=== PATIENT | male | born 1975 | race Caucasian/White ===

== ENCOUNTER 2017-03-16 05:14 | Emergency (ER) | payer BC, OTHER ==
--- NOTE | 2017-03-16 05:36 | ED ---
Abdominal Pain HPI - General Chief Complaint: Abdominal Pain Stated Complaint: Male Time Seen by Provider: 03/16/17 05:30 Source: patient Mode of arrival: ambulatory Limitations: no limitations - History of Present Illness Initial Comments: 41 years old male complaining about left-sided flank pain and some dysuria when he voids left-sided flank pain started 9 PM he also has some discomfort in the right flank pain as well the left side is worse he denies any history of kidney stones is no family history of kidney stones as well he denies any fever or chills nausea or vomiting or intractable pain typical of for kidney stones denies any trauma to the back as well - Related Data Home Medications Medication Instructions Recorded Confirmed No Known Home Medications [No 03/16/17 03/16/17 Known Home Medications] Allergies Allergy/AdvReac Type Severity Reaction Status Date / Time No Known Allergies Allergy Verified 03/16/17 05:21 Review of Systems ROS Statement: Those systems with pertinent positive or pertinent negative responses have been documented in the HPI. ROS Other: All systems not noted in ROS Statement are negative. Past Medical History Past Medical History: No Reported History History of Any Multi-Drug Resistant Organisms: None Reported Past Surgical History: Orthopedic Surgery Past Psychological History: No Psychological Hx Reported Smoking Status: Former smoker Past Alcohol Use History: Occasional Past Drug Use History: None Reported General Exam - General Exam Comments Initial Comments: General: The patient is awake and alert, in no distress, and does not appear acutely ill. Skin: Skin is warm and dry and no rashes or lesions are noted. Eye: Pupils are equal, round and reactive to light, extra-ocular movements are intact; there is normal conjunctiva bilaterally. Ears, nose, mouth and throat: There are moist mucous membranes and no oral lesions. Neck: The neck is supple, there is no tenderness or JVD. Cardiovascular: There is a regular rate and rhythm. No murmur, rub or gallop is appreciated. Respiratory: To auscultation bilateral, no wheezing no rhonchi no distress respiratory [place] noticed Gastrointestinal: Mildly tender over the left flank area and over the left lower quadrant area positive bowel sounds no guarding no rebounds. Back: There is no tenderness to palpation in the midline. There is no obvious deformity. Musculoskeletal: Normal ROM, no tenderness, There is no pedal edema. There is no calf tenderness or swelling. No cords were appreciated. Neurological: CN II-XII intact, Cranial nerves III through XII are intact. There are no obvious motor or sensory deficits. Coordination appears grossly intact. Speech is normal. Psychiatric: Cooperative, appropriate mood & affect, normal judgment. Limitations: no limitations Course Vital Signs 03/16/17 05:17 Temperature 96.8 F L Pulse Rate 110 H Respiratory 20 Rate Blood Pressure 140/104 O2 Sat by Pulse 99 Oximetry Patient's labs are reviewed, urinalysis is unremarkable, white count is 12.2 creatinine and BUN LFTs and electrolytes are absolutely normal the findings were discussed with the patient he was reassured and told that this time seems like a flank pain is muscular in nature. If he develops fever chills or symptoms get worse he is advised to come back or follow-up with family doctor he agreed to that for now he is advised to use [id number] nonsteroidal anti-inflammatory for the back pain. The Medical Decision Making - Lab Data Result diagrams: 03/16/17 05:55 03/16/17 05:55 Lab Results 03/16/17 03/16/17 03/16/17 Range/Units 05:55 05:55 05:55 WBC 12.2 H (3.8-10.6) k/uL RBC 4.86 (4.30-5.90) m/uL Hgb 14.9 (13.0-17.5) gm/dL Hct 48.7 (39.0-53.0) % MCV 100.1 H (80.0-100.0) fL MCH 30.7 (25.0-35.0) pg MCHC 30.7 L (31.0-37.0) g/dL RDW 13.0 (11.5-15.5) % Plt Count 365 (150-450) k/uL Neutrophils % 64 % Lymphocytes % 26 % Monocytes % 6 % Eosinophils % 3 % Basophils % 1 % Neutrophils # 7.8 H (1.3-7.7) k/uL Lymphocytes # 3.1 (1.0-4.8) k/uL Monocytes # 0.7 (0-1.0) k/uL Eosinophils # 0.3 (0-0.7) k/uL Basophils # 0.1 (0-0.2) k/uL Sodium 138 (137-145) mmol/L Potassium 4.1 (3.5-5.1) mmol/L Chloride 99 (98-107) mmol/L Carbon Dioxide 26 (22-30) mmol/L Anion Gap 13 mmol/L BUN 11 (9-20) mg/dL Creatinine 1.10 (0.66-1.25) mg/dL Est GFR (MDRD) Af Amer >60 (>60 ml/min/1.73 sqM) Est GFR (MDRD) Non-Af >60 (>60 ml/min/1.73 sqM) Glucose 83 (74-99) mg/dL Calcium 9.2 (8.4-10.2) mg/dL Total Bilirubin 0.5 (0.2-1.3) mg/dL AST 32 (17-59) U/L ALT 38 (21-72) U/L Alkaline Phosphatase 52 (38-126) U/L Total Protein 7.4 (6.3-8.2) g/dL Albumin 4.1 (3.5-5.0) g/dL Urine Color Yellow Urine Appearance Clear (Clear) Urine pH 7.5 (5.0-8.0) Ur Specific [place] 1.015 (1.001-1.035) Urine Protein Trace H (Negative) Urine Glucose (UA) Negative (Negative) Urine Ketones Negative (Negative) Urine Blood Negative (Negative) Urine Nitrite Negative (Negative) Urine Bilirubin Negative (Negative) Urine Urobilinogen 2.0 (<2.0) mg/dL Ur Leukocyte Esterase Negative (Negative) Disposition Clinical Impression: Left flank pain, Back pain Disposition: HOME SELF-CARE Instructions: Low Back Strain (ED) Referrals: Geneva Spring MD [Primary Care Provider] - 1-2 days
[2017-03-16 06:09] LABS: Basophils # (A) 0.1 k/uL (0-0.2); Basophils % (A) 1 %; Eosinophils # (A) 0.3 k/uL (0-0.7); Eosinophils % (A) 3 %; HCT 48.7 % (39.0-53.0); HGB 14.9 gm/dL (13.0-17.5); Lymphocytes # (A) 3.1 k/uL (1.0-4.8); Lymphocytes % (A) 26 %; MCH 30.7 pg (25.0-35.0); MCHC 30.7 g/dL (31.0-37.0); MCV 100.1 fL (80.0-100.0); Mean Platelet Volume 7.3; Monocytes # (A) 0.7 k/uL (0-1.0); Monocytes % (A) 6 %; Neutrophils # (A) 7.8 k/uL (1.3-7.7); Neutrophils % (A) 64 %; Platelet Count 365 k/uL (150-450); RBC 4.86 m/uL (4.30-5.90); WBC 12.2 k/uL (3.8-10.6)
[2017-03-16 06:19] LABS: Appearance,Urine Clear (Clear); Bilirubin,Urine Negative (Negative); Blood,Urine Negative (Negative); Color,Urine Yellow; Glucose,Urine (UA) Negative (Negative); Ketones,Urine Negative (Negative); Leukocyte Esterase,Urine Negative (Negative); Nitrite,Urine Negative (Negative); PH, Urine 7.5 (5.0-8.0); Protein,Urine Trace (Negative); Specific Gravity,Urine 1.015 (1.001-1.035)
[2017-03-16 06:25] LABS: ALT 38 U/L (21-72); AST 32 U/L (17-59); Albumin 4.1 g/dL (3.5-5.0); Alkaline Phosphatase 52 U/L (38-126); Anion Gap 13 mmol/L; Blood Urea Nitrogen 11 mg/dL (9-20); Calcium 9.2 mg/dL (8.4-10.2); Carbon Dioxide 26 mmol/L (22-30); Chloride 99 mmol/L (98-107); Glucose 83 mg/dL (74-99); Potassium 4.1 mmol/L (3.5-5.1); Sodium 138 mmol/L (137-145); Total Bilirubin 0.5 mg/dL (0.2-1.3); Total Protein 7.4 g/dL (6.3-8.2)
[2017-03-16 08:15] VITALS: BP 144/76; PULSE 18; RESP 18; TEMP 98.7
== END 2017-03-16 07:08 | disposition home or self-care (01) ==
LOC: EC 05:14
DX: R10.32 Left lower quadrant pain (principal); M54.9 Dorsalgia, unspecified; Z87.891 Personal history of nicotine dependence
CPT/HCPCS: 36415; 80053; 81003; 85025; 99283

== ENCOUNTER → 2018-01-11 | Outpatient (CLI) | payer BC ==
--- NOTE | 2018-01-11 18:38 | CONS ---
CONSULTATION DATE OF SERVICE: 01/11/2018 42-year-old gentleman who has been evaluated in [facility] for loud snoring and excessive daytime sleepiness. HISTORY OF PRESENT ILLNESS/SLEEP-WAKE EVALUATION: SLEEP SCHEDULE: Patient usual sleep schedule on weekdays from around 11:00 p.m. to 5:30 a.m. and on weekends from midnight until 8, 8:30 a.m. FALLING ASLEEP: Usually no problems with falling asleep, although he has TV set in bedroom. DURING SLEEP: He snores, wakes up from sleep several times with grinding teeth and nocturia. DURING THE DAY/SLEEP WAKE EVALUATION: In the morning patient wakes up tired, has difficulties to pay attention, falling asleep during the day, worries about his sleep, has problems with memory, concentration, irritability, depression, anxiety [place] Sleepiness Scale increased to 12. The patient may take naps at 1:00 pm, usually without dreams. No history of hypnagogic hallucinations, sleep paralysis, positive history of weakness in arms during long laughing, possibility of cataplexy. PAST MEDICAL HISTORY: Fracture of right femur with open fracture status post surgical treatment with 30 titanium dion. MEDICATIONS: None. SOCIAL HISTORY: Occasionally smoking up to several cigarettes a day. Alcohol consumption occasional. FAMILY HISTORY: Sleep apnea, snoring, diabetes. REVIEW OF SYSTEMS: Awakenings from sleep. Sometimes sadness and sleepiness during the day. PHYSICAL EXAM: gentleman without distress. BP 138/73, HR 90, RR 16, height 5 feet 11 inches and weight 231 pounds. Body mass index 31.7, temperature 98.3, oxygen saturation on room air 97%. Oropharynx: Low position of soft palate. Neck is 17-1/2 inches in circumference. Neck: Wide neck. Supple, no JVD. Thyroid is not palpable. LUNGS Clear to percussion and to auscultation. Good air exchange. No wheezing or rhonchi. HEART S1, S2 regular. No murmurs, gallops, or rubs. ABDOMEN Soft and nontender. Bowel sounds are present. No organomegaly appreciated. EXTREMITIES No clubbing or cyanosis. ROD DRAWER Awake, alert, and oriented X3. Cranial nerves 2 to 7 intact. There is no fasciculation or atrophy. noted. No focal deficits observed. IMPRESSION: 1. Snoring. Awakenings from sleep with nocturia. Low position of soft palate, wide neck, sleepiness. Obstructive sleep apnea-hypopnea syndrome. 2. Sleepiness, [place] Sleepiness Scale increased to 12. Questionable above history of cataplexy, weakness in arms during strong laughing. Differential diagnosis should include hypersomnia. 3. Status post right femur open fracture treated with the titanium dion 2015. PLAN: 1. Polysomnography for evaluation of patient's breathing during sleep. 2. CPAP/BiPAP titration if sleep study confirms obstructive sleep apnea-hypopnea syndrome. 3. Preferable position during sleep on the side. 4. No driving if patient feels any sleepiness. 5. I will see patient for follow up visit to explain results of testing and following plan. 6. Multiple sleep latency test if the sleep study will be negative for obstructive sleep apnea-hypopnea syndrome. Thank you very much for referring this patient for consultation. Sincerely, Caleb Whitmore MD, PhD, FAASM Diplomat of [employer] Supervisor Maintenance of [facility] [place] MMODL / IJN: [id number] /
== END ==
LOC: SLEEP 16:21
PROVIDERS: ATTEND Internal Medicine
DX: G47.33 Obstructive sleep apnea (adult) (pediatric) (principal); F17.210 Nicotine dependence, cigarettes, uncomplicated; Z99.89 Dependence on other enabling machines and devices
CPT/HCPCS: 99211

== ENCOUNTER 2018-11-09 18:59 | Emergency (ER) | payer BC ==
[2018-11-09 19:38] VITALS: TEMP 98.7
[2018-11-09] MEDS ORDERED: HYDROcodone/APAP 7.5-325MG 1 EACH TAB PO ONE (19:57)
[2018-11-09 20:20] LABS: Appearance,Urine Clear (Clear); Bilirubin,Urine Negative (Negative); Blood,Urine Negative (Negative); Color,Urine Yellow; Glucose,Urine (UA) Negative (Negative); Ketones,Urine 2+ (Negative); Leukocyte Esterase,Urine Trace (Negative); Mucus,Urine Few /hpf; Nitrite,Urine Negative (Negative); Protein,Urine Trace (Negative); RBC,Urine <1 /hpf (0-5); Squamous Epithelial Cell,Urine <1 /hpf (0-4); Urobilinogen,Urine <2.0 mg/dL (<2.0); WBC,Urine 1 /hpf (0-5)
--- NOTE | 2018-11-09 20:57 | US ---
EXAMINATION TYPE: US scrotum with doppler. Grayscale and color Doppler Duplex imaging performed of andrei agustin scrotum. DATE OF EXAM: 11/09/2018 COMPARISON: NONE CLINICAL HISTORY: testicular pain. EXAM MEASUREMENTS: TESTICLES: Right Testicle: 4.6 x 2.0 x 2.6 cm Left Testicle: 4.0 x 2.2 x 2.9 cm EPIDIDYMIS HEAD: Right Epididymis: 1.4 cm Left Epididymis: 1.1 cm Doppler performed to assess for testicular vascularity; good bilateral color flow and waveforms are s een. There is no evidence of testicular torsion. Presence of hydroceles: no Presence of varicoceles: There appears to be left varicocele, dilated vessels measure up to 6mm IMPRESSION: There is left-sided varicocele. No testicular torsion or mass. No evidence of epididymal mass.
[2018-11-09] MEDS ORDERED: AZITHROMYCIN 500 MG TAB PO STA (21:14)
[2018-11-09] MEDS ORDERED: cefTRIAXone 250 MG VIAL IM STA (21:14)
--- NOTE | 2018-11-09 21:17 | ED ---
Male Urogenital HPI - General Chief complaint: Urogenital Stated complaint: lt testicle pain Time Seen by Provider: 11/09/18 19:41 Source: patient Mode of arrival: ambulatory Limitations: no limitations - History of Present Illness Initial comments: 43-year-old male presenting for testicular pain for 3 days. Patient states she has extensive emergency department workup [facility] yesterday. He states this involved a CAT scan of his abdomen and pelvis, ultrasound the testicles, laboratory studies urinalysis. He states he could find no abnormalities. Patient states the pain persists especially in the posterior left testicle. Patient denies any specific concerns for sexual transmitted diseases he denies dysuria urgency frequency back pain hematuria fevers chills night sweats or further symptoms. Patient denies abdominal pain or history of hernias. Denies constipation or diarrhea. Patient has no other complaints patient states he does feel left testicle swollen. Lipase is negative. Upon arrival patient appears well no signs of acute distress. - Related Data Previous Rx's Medication Instructions Recorded Doxycycline [Vibramycin] 100 mg PO BID 14 Days #28 capsule 11/09/18 Allergies Allergy/AdvReac Type Severity Reaction Status Date / Time No Known Allergies Allergy Verified 11/09/18 19:38 Review of Systems ROS Statement: Those systems with pertinent positive or pertinent negative responses have been documented in the HPI. ROS Other: All systems not noted in ROS Statement are negative. Past Medical History Past Medical History: No Reported History History of Any Multi-Drug Resistant Organisms: None Reported Past Surgical History: Orthopedic Surgery Past Psychological History: No Psychological Hx Reported Smoking Status: Current every day smoker Past Alcohol Use History: Occasional Past Drug Use History: None Reported General Exam - General Exam Comments Initial Comments: General: The patient is awake and alert, in no distress, and does not appear acutely ill. Eye: Pupils are equal, round and reactive to light, extra-ocular movements are intact. No nystagmus. There is normal conjunctiva bilaterally. No signs of icterus. Cardiovascular: There is a regular rate and rhythm. No murmur, rub or gallop is appreciated. Respiratory: Lungs are clear to auscultation, respirations are non-labored, breath sounds are equal. No wheezes, stridor, rales, or rhonchi. Gastrointestinal: Soft, non-distended, non-tender abdomen without masses or organomegaly noted. There is no rebound or guarding present. No CVA tenderness. Bowel sounds are unremarkable. Slight swelling of the left testicle the persistent the right. Patient does have point localized tenderness of the epididymis. Patient is no obvious a varicocele. Vertical lie of the testicles. No blue dot sign. Cremasteric reflex intact. No palpable inguinal hernia. Musculoskeletal: Normal ROM, no tenderness. Strength 5/5. Sensation intact. Radial pulses equal bilaterally 2+. Neurological: A&O x 3. CN II-XII intact grossly, There are no obvious motor or sensory deficits. Coordination appears grossly intact. Speech is normal. Skin: Skin is warm and dry and no rashes or lesions are noted. Psychiatric: Cooperative, appropriate mood & affect, normal judgment. Limitations: no limitations Course Vital Signs 11/09/18 11/09/18 19:36 21:43 Temperature 98.7 F Pulse Rate 100 99 Respiratory 16 18 Rate Blood Pressure 151/116 141/69 O2 Sat by Pulse 98 99 Oximetry Medical Decision Making - Medical Decision Making 43-year-old male presents emergency department for evaluation of left-sided testicular pain 3 days. No obvious nebulizer physical examination aside from slight soft tissue swelling of the left scrotum and pain to the epididymis. Patient denies concern for sexual transmitted diseases. Patient's urinalysis unremarkable. Findings and ultrasound consistent varicocele. Patient be treated for sexually transmitted diseases given the epididymis pain, as well as doxycycline outpatient to cover for E. coli. I discussed the case in detail attending provider Dr. Monet who is agreeable with discharge and outpatient urology f/u. Patient is agreeable to this care plan discharge at this time discharged appearing well - Lab Data Lab Results 11/09/18 Range/Units 20:00 Urine Color Yellow Urine Appearance Clear (Clear) Urine pH 6.0 (5.0-8.0) Ur Specific [place] 1.020 (1.001-1.035) Urine Protein Trace H (Negative) Urine Glucose (UA) Negative (Negative) Urine Ketones 2+ H (Negative) Urine Blood Negative (Negative) Urine Nitrite Negative (Negative) Urine Bilirubin Negative (Negative) Urine Urobilinogen <2.0 (<2.0) mg/dL Ur Leukocyte Esterase Trace H (Negative) Urine RBC <1 (0-5) /hpf Urine WBC 1 (0-5) /hpf Ur Squamous Epith Cells <1 (0-4) /hpf Urine Mucus Few H (None) /hpf Disposition Clinical Impression: Left varicocele, Testicular pain Disposition: HOME SELF-CARE Condition: Good Additional Instructions: Please use medication as discussed. Please follow-up with urology in the next week-PCP in 1-2 days. Please return to emergency room if the symptoms increase or worsen or for any other concerns. Prescriptions: Doxycycline [Vibramycin] 100 mg PO BID 14 Days #28 capsule Is patient prescribed a controlled substance at d/c from ED?: No Referrals: Geneva Spring MD [Primary Care Provider] - 1-2 days Kashmir Aguila MD [STAFF PHYSICIAN] - 1-2 days Time of Disposition: 21:14
[2018-11-09] MEDS ORDERED: ACET/COD 300 MG/30 MG STARTER PACK 6 TAB BTL PO STA (21:21)
[2018-11-09 21:46] VITALS: BP 141/69; PULSE 99; RESP 18
== END 2018-11-09 21:46 | disposition home or self-care (01) ==
LOC: EC 18:59
DX: I86.1 Scrotal varices (principal); F17.200 Nicotine dependence, unspecified, uncomplicated
CPT/HCPCS: 81001; 93975; 76870; 99284; 96372; J0696

== ENCOUNTER → 2020-10-24 | Outpatient (CLI) | payer BC ==
--- NOTE | 2020-10-24 13:56 | XR ---
EXAMINATION TYPE: XR foot limited RT DATE OF EXAM: 10/24/2020 COMPARISON: NONE HISTORY: 45 years Male. STUDY INDICATION GIVEN: PAIN RIGHT HEEL . TECHNIQUE: Frontal lateral radiographs of the right foot IMPRESSION: Small knee joint effusion without acute fracture or dislocation. Soft tissue swelling over the anteri or ankle joint. Joint spaces are normal in appearance. Enthesophyte changes at the Achilles insertion . Tiny calcaneal plantar spur.
== END | disposition home or self-care (01) ==
LOC: RADXRMAIN 12:47
PROVIDERS: ATTEND Internal Medicine
DX: M77.31 Calcaneal spur, right foot (principal); M79.89 Other specified soft tissue disorders

== ENCOUNTER 2023-02-27 08:14 | Day surgery (SDC) | payer BC ==
[2023-02-27] MEDS ORDERED: LACTATED RINGERS 1,000 ML IV SCH (08:29)
[2023-02-27 08:56] VITALS: TEMP 96.9
[2023-02-27] MEDS ORDERED: PROPOFOL 10 MG/ML 20 ML VIAL IV ONE (09:02)
--- NOTE | 2023-02-27 09:04 | P.GSHP ---
History of Present Illness H&P Date: 02/27/23 Chief Complaint: Screening colonoscopy This is a 47-year-old male presents today for screening colonoscopy. Patient denies a significant GI complaints. Past Medical History Past Medical History: Asthma Additional Past Medical History / Comment(s): Blood clots. , grew out of childhood asthma History of Any Multi-Drug Resistant Organisms: None Reported Past Surgical History: Orthopedic Surgery Additional Past Surgical History / Comment(s): femur surgery right then blood clot after surgery Past Anesthesia/Blood Transfusion Reactions: No Reported Reaction Additional Past Anesthesia/Blood Transfusion Reaction / Comment(s): no blood transfusion Smoking Status: Current every day smoker, Vaper Additional Past Alcohol Use History / Comment(s): quit 2018 cigarettes still vapes nicotine Medications and Allergies Allergies Allergy/AdvReac Type Severity Reaction Status Date / Time No Known Allergies Allergy Verified 02/27/23 08:28 Surgical - Exam Vital Signs Temp Pulse Resp BP Pulse Ox 96.9 F L 75 16 137/82 97 02/27/23 08:33 02/27/23 08:33 02/27/23 08:33 02/27/23 08:33 02/27/23 08:33 - General well developed, well nourished, no distress - Eyes PERRL - ENT normal pinna - Neck no masses - Respiratory normal expansion - Cardiovascular Rhythm: regular - Abdomen Abdomen: soft, non tender Assessment and Plan Assessment: We'll perform screening colonoscopy.
--- NOTE | 2023-02-27 09:17 | P.OP ---
Date of Procedure: 02/27/23 Preoperative Diagnosis: Screening colonoscopy Postoperative Diagnosis: Normal colon Procedure(s) Performed: Colonoscopy Anesthesia: MAC Surgeon: Russell Chavez Pathology: none sent Condition: stable Disposition: PACU Description of Procedure: PROCEDURE: The patient was placed on the endoscopy table in the lateral position. Digital rectal examination was performed which revealed no abnormalities. The prostate was symmetrical without nodules. Flexible colonoscope was then placed in the patient's anus and passed throughout the entire colon. The ileocecal valve was visualized. The cecum, ascending, transverse, descending and sigmoid colon were normal. The rectum was normal as well. There were no masses, polyps or diverticula noted in the entire colon. SUMMARY OF FINDINGS: Normal colonoscopy.
[2023-02-27 09:45] VITALS: BP 116/72; PULSE 60; RESP 18
== END 2023-02-27 10:05 | disposition home or self-care (01) ==
LOC: ORWHC2ENDO 08:14
PROVIDERS: ATTEND Surgery
DX: Z12.11 Encounter for screening for malignant neoplasm of colon (principal); J45.909 Unspecified asthma, uncomplicated; F17.290 Nicotine dependence, other tobacco product, uncomplicated; F10.90 Alcohol use, unspecified, uncomplicated
CPT/HCPCS: 45378; J2704

== ENCOUNTER 2023-03-21 19:24 | Observation (INO) | payer BC ==
--- NOTE | 2023-03-21 20:00 | ED ---
General Adult HPI - General Stated complaint: abd pain Time Seen by Provider: 03/21/23 19:51 Source: patient Mode of arrival: ambulatory Limitations: no limitations - History of Present Illness Initial comments: 47-year-old male with no prior abdominal surgical history presenting to the ED with a chief complaint of abdominal pain. Patient states around 5:00 today had acute onsets of right upper quadrant abdominal pain with associated nausea and vomiting. Reports that he did try eating which did intensify pain. Denies fever or chills. Denies chest pain or shortness of breath. No changes in urinary or bladder habits. No other complaints at this time. - Related Data Allergies Allergy/AdvReac Type Severity Reaction Status Date / Time No Known Allergies Allergy Verified 03/21/23 19:53 Review of Systems ROS Statement: Those systems with pertinent positive or pertinent negative responses have been documented in the HPI. ROS Other: All systems not noted in ROS Statement are negative. Past Medical History Past Medical History: Asthma Additional Past Medical History / Comment(s): Blood clots. , grew out of childhood asthma History of Any Multi-Drug Resistant Organisms: None Reported Past Surgical History: Orthopedic Surgery Additional Past Surgical History / Comment(s): femur surgery right then blood clot after surgery Past Anesthesia/Blood Transfusion Reactions: No Reported Reaction Additional Past Anesthesia/Blood Transfusion Reaction / Comment(s): no blood transfusion Past Psychological History: No Psychological Hx Reported Smoking Status: Current every day smoker, Vaper Past Alcohol Use History: None Reported Past Drug Use History: None Reported General Exam Limitations: no limitations General appearance: in distress Eye exam: Present: normal appearance Neck exam: Present: normal inspection Respiratory exam: Present: normal lung sounds bilaterally Cardiovascular Exam: Present: regular rate, normal rhythm GI/Abdominal exam: Present: tenderness (In the right upper quadrant. Positive Goldberg sign.) Course Vital Signs 03/21/23 03/21/23 19:51 21:00 Temperature 98.2 F Pulse Rate 85 76 Respiratory 28 H 24 Rate Blood Pressure 122/54 134/83 O2 Sat by Pulse 99 99 Oximetry Medical Decision Making - Medical Decision Making Was pt. sent in by a medical professional or institution (, PA, PHOTOCOPYING MACHINE OPERATOR, urgent care, hospital, or alf...) When possible be specific @ -No Did you speak to anyone other than the patient for history (EMS, parent, family, police, friend...)? What history was obtained from this source @ -No Did you review nursing and triage notes (agree or disagree)? Why? @ -I reviewed and agree with nursing and triage notes Were old charts reviewed (outside hosp., previous admission, EMS record, old EKG, old radiological studies, urgent care reports/EKG's, alf records)? Report findings @ -No old charts were reviewed Differential Diagnosis (chest pain, altered mental status, abdominal pain women, abdominal pain men, vaginal bleeding, weakness, fever, dyspnea, syncope, headache, dizziness, GI bleed, back pain, seizure, CVA, palpatations, mental health, musculoskeletal)? @ -Differential Abdominal Pain Men: Appendicitis, cholecystitis, diverticulosis, ischemic bowel, pancreatitis, hepatitis, UTI, gastroenteritis, AAA, incarcerated hernia, bowel obstruction, constipation, inflammatory bowel, hepatitis, peptic ulcer disease, splenic infarction, perforated viscus, testicular torsion, this is not meant to be an all-inclusive list EKG interpreted by me (3pts min.). @ -EKG interpreted by me showing a sinus rhythm at [address] or T wave changes. QRS 112, QT/QTc 367/392. X-rays interpreted by me (1pt min.). @ -None done CT interpreted by me (1pt min.). @ -None done U/S interpreted by me (1pt. min.). @ -Ultrasound interpreted by me showing mild gallbladder wall thickening with underlying cholelithiasis consistent with acute cholecystitis. What testing was considered but not performed or refused? (CT, X-rays, U/S, labs)? Why? @ -None What meds were considered but not given or refused? Why? @ -None Did you discuss the management of the patient with other professionals (professionals i.e. , PA, PHOTOCOPYING MACHINE OPERATOR, lab, RT, psych nurse, social and political studies professor, music cataloguer, teacher, horticultural technical officer, bottle caser)? Give summary @ -Case discussed with Dr. Chavez, who recommends antibiotics, keeping the patient n.p.o. after midnight. Will take primary admission with consult to medicine. Was smoking cessation discussed for >3mins.? @ -No Was critical care preformed (if so, how long)? @ -No Were there social determinants of health that impacted care today? How? (Homelessness, low income, unemployed, alcoholism, drug addiction, transportation, low edu. Level, literacy, decrease access to med. care, [facility], rehab)? @ -No Was there de-escalation of care discussed even if they declined (Discuss DNR or withdrawal of care, Hospice)? DNR status @ -No What co-morbidities impacted this encounter? (DM, HTN, Smoking, COPD, CAD, Cancer, CVA, ARF, Chemo, Hep., AIDS, mental health diagnosis, sleep apnea, morbid obesity)? @ -None Was patient admitted / discharged? Hospital course, mention meds given and route, prescriptions, significant lab abnormalities, going to OR and other pertinent info. @ -Admission 47-year-old male presenting to the ED with acute onset of right upper quadrant pain with associated nausea and vomiting. Laboratory studies reviewed. Labs including CBC, CMP largely unremarkable however there is an increase in lactic acid at 2.4. Ultrasound at this time consistent with early cholecystitis. Patient will be admitted to surgical services with consult to medicine. Antibiotics initiated here in the ED. Patient will be kept n.p.o. after midnight. Undiagnosed new problem with uncertain prognosis? @ -No Drug Therapy requiring intensive monitoring for toxicity (Heparin, Nitro, Insulin, Cardizem)? @ -No Were any procedures done? @ -No Diagnosis/symptom? @ -Cholecystitis Acute, or Chronic, or Acute on Chronic? @ -Acute Uncomplicated (without systemic symptoms) or Complicated (systemic symptoms)? @ -Uncomplicated Side effects of treatment? @ -No Exacerbation, Progression, or Severe Exacerbation? @ -No Poses a threat to life or bodily function? How? (Chest pain, [place], [place], pneumonia, PE, COPD, DKA, ARF, appy, cholecystitis, CVA, Diverticulitis, Homicidal, Suicidal, threat to staff... and all critical care pts) @ -No - Lab Data Result diagrams: 03/21/23 20:07 03/21/23 20:07 Lab Results 03/21/23 03/21/23 03/21/23 Range/Units 20:07 20:07 20:07 WBC 8.8 (3.8-10.6) k/uL RBC 4.87 (4.30-5.90) m/uL Hgb 16.0 (13.0-17.5) gm/dL Hct 48.3 (39.0-53.0) % MCV 99.1 (80.0-100.0) fL MCH 32.7 (25.0-35.0) pg MCHC 33.0 (31.0-37.0) g/dL RDW 13.5 (11.5-15.5) % Plt Count 237 (150-450) k/uL MPV 7.6 Neutrophils % 68 % Lymphocytes % 24 % Monocytes % 4 % Eosinophils % 2 % Basophils % 1 % Neutrophils # 6.0 (1.3-7.7) k/uL Lymphocytes # 2.1 (1.0-4.8) k/uL Monocytes # 0.3 (0-1.0) k/uL Eosinophils # 0.2 (0-0.7) k/uL Basophils # 0.1 (0-0.2) k/uL Sodium 140 (137-145) mmol/L Potassium 3.9 (3.5-5.1) mmol/L Chloride 106 (98-107) mmol/L Carbon Dioxide 23 (22-30) mmol/L Anion Gap 11 mmol/L BUN 11 (9-20) mg/dL Creatinine 0.99 (0.66-1.25) mg/dL Est GFR (CKD-EPI)AfAm >90 (>60 ml/min/1.73 sqM) Est GFR (CKD-EPI)NonAf >90 (>60 ml/min/1.73 sqM) Glucose 109 H (74-99) mg/dL Plasma Lactic Acid Dexter 2.4 H* (0.7-2.0) mmol/L Calcium 9.0 (8.4-10.2) mg/dL Total Bilirubin 1.1 (0.2-1.3) mg/dL AST 48 (17-59) U/L ALT 41 (4-49) U/L Alkaline Phosphatase 67 (38-126) U/L Total Protein 6.7 (6.3-8.2) g/dL Albumin 4.3 (3.5-5.0) g/dL Amylase 60 (30-110) U/L Lipase 68 (23-300) U/L Disposition Clinical Impression: Cholecystitis Disposition: ADMITTED IP TO THIS [facility] Condition: Good Referrals: Melanie Moon MD [Primary Care Provider] - 1-2 days Time of Disposition: 21:50
[2023-03-21] MEDS: KETOROLAC 15 MG/ML 1 ML VIAL IVP STA (20:17)
[2023-03-21] MEDS: ONDANSETRON 4 MG/2 ML VIAL IVP STA (20:17)
[2023-03-21 20:25] LABS: Basophils # (A) 0.1 k/uL (0-0.2); Basophils % (A) 1 %; Eosinophils # (A) 0.2 k/uL (0-0.7); Eosinophils % (A) 2 %; HCT 48.3 % (39.0-53.0); Lymphocytes # (A) 2.1 k/uL (1.0-4.8); Lymphocytes % (A) 24 %; MCH 32.7 pg (25.0-35.0); MCV 99.1 fL (80.0-100.0); Mean Platelet Volume 7.6; Monocytes # (A) 0.3 k/uL (0-1.0); Monocytes % (A) 4 %; Neutrophils % (A) 68 %; Platelet Count 237 k/uL (150-450); RBC 4.87 m/uL (4.30-5.90); RDW 13.5 % (11.5-15.5); WBC 8.8 k/uL (3.8-10.6)
[2023-03-21 20:40] LABS: ALT 41 U/L (4-49); AST 48 U/L (17-59); African American GFR (CKD) >90 (>60 ml/min/1.73 sqM); Albumin 4.3 g/dL (3.5-5.0); Alkaline Phosphatase 67 U/L (38-126); Amylase 60 U/L (30-110); Anion Gap 11 mmol/L; Blood Urea Nitrogen 11 mg/dL (9-20); Carbon Dioxide 23 mmol/L (22-30); Chloride 106 mmol/L (98-107); Glucose 109 mg/dL (74-99); Lipase 68 U/L (23-300); Non-African American GFR(CKD) >90 (>60 ml/min/1.73 sqM); Potassium 3.9 mmol/L (3.5-5.1); Sodium 140 mmol/L (137-145); Total Bilirubin 1.1 mg/dL (0.2-1.3); Total Protein 6.7 g/dL (6.3-8.2)
[2023-03-21] MEDS: MORPHINE SULFATE 4 MG/ML SYRINGE IVP STA (21:01)
--- NOTE | 2023-03-21 21:20 | US ---
EXAMINATION TYPE: US gallbladder DATE OF EXAM: 03/21/2023 COMPARISON: NONE CLINICAL INDICATION: Male, 47 years old with history of r/o cholecystitis; Severe RUQ pain x 5 hours TECHNIQUE: Multiple sonographic images of the right upper quadrant are obtained. FINDINGS: EXAM MEASUREMENTS: Liver Length: 17.4 cm Gallbladder Wall: 0.5 cm CBD: 0.49 cm Right Kidney: 12.2 x 4.8 x 5.2 cm Pancreas: Obscured by bowel gas Liver: wnl Gallbladder: Borderline hydropic. Multiple shadowing stones. A couple junctional folds are present. Wall appears mildly thickened Evidence for sonographic Goldberg's sign: Yes CBD: wnl Right Kidney: wnl IMPRESSION: 1. Mild gallbladder wall thickening, borderline hydropic change, underlying cholelithiasis, and posit marlene sonographic Goldberg's sign. Correlate for early acute cholecystitis. HIDA scan if further imaging evaluation is desired. 2. No biliary ductal dilatation.
[2023-03-21] MEDS: ACETAMINOPHEN TAB 500 MG TAB PO STA (21:53)
[2023-03-21] MEDS ORDERED: NALOXONE 0.4 MG/ML 1 ML VIAL IV PRN (22:17)
[2023-03-21] MEDS: SODIUM CHLORIDE 0.9% 1,000 ML IV SCH (22:51)
[2023-03-21] MEDS: PIPERACILLIN-TAZOBACTAM 3.375 GM in SODIUM CHLORIDE 0.9% 100 ML IVPB SCH (23:35)
[2023-03-22 02:12] LABS: Appearance,Urine Cloudy (Clear); Bilirubin,Urine Negative (Negative); Blood,Urine Negative (Negative); Calcium Oxalate Crystals,Urine Occasional /hpf; Color,Urine Yellow; Glucose,Urine (UA) Negative (Negative); Ketones,Urine 1+ (Negative); Leukocyte Esterase,Urine Negative (Negative); Mucus,Urine Many /hpf; Nitrite,Urine Negative (Negative); PH, Urine 6.5 (5.0-8.0); Protein,Urine 1+ (Negative); RBC,Urine 2 /hpf (0-5); Specific Gravity,Urine 1.033 (1.001-1.035); Urobilinogen,Urine <2.0 mg/dL (<2.0); WBC,Urine 2 /hpf (0-5)
[2023-03-22] MEDS: HYDROmorphone 1 MG/ML 1 ML SYRINGE IVP PRN (09:00)
[2023-03-22] MEDS ORDERED: ACETAMINOPHEN TAB 325 MG TAB PO PRN (09:25)
[2023-03-22] MEDS: ONDANSETRON 4 MG/2 ML VIAL IVP PRN (12:18)
--- NOTE | 2023-03-22 12:52 | P.GSHP ---
History of Present Illness H&P Date: 03/22/23 CHIEF COMPLAINT: Abdominal pain HISTORY OF PRESENT ILLNESS: This is a 47-year-old male who presents to hospital complaints of right upper quadrant abdominal pain that started at 5 PM yesterday. Patient reports eating chicken pot pie yesterday afternoon for lunch. And then by the evening he was having pain with nausea and vomiting. He was also having chills and sweats. He came into the ER for evaluation gallbladder ultrasound had shown gallbladder wall thickening, hydropic gallbladder gallstones and positive Goldberg sign. Patient admitted to the hospital for cholecystitis. Patient denies any past abdominal surgical history. He denies any cardiac history. PAST MEDICAL HISTORY: Childhood asthma, femur surgery and then blood clot after surgery PAST SURGICAL HISTORY: See below MEDICATIONS: See below ALLERGIES: See below SOCIAL HISTORY: No illicit drug use. REVIEW OF SYSTEMS: CONSTITUTIONAL: Denies fever or chills. HEENT: Denies blurred vision, vision changes, or eye pain. Denies hemoptysis CARDIOVASCULAR: Denies chest pain or pressure. RESPIRATORY: No shortness of breath. GASTROINTESTINAL: See HPI for pertinent findings HEMATOLOGIC: Denies bleeding disorders. GENITOURINARY: Denies any blood in urine or increased urinary frequency. SKIN: Denies pruitis. Denies rash. PHYSICAL EXAM: VITAL SIGNS: Reviewed GENERAL: Well-developed in no acute distress. HEENT: No sclera icterus. Extraocular movements grossly intact. Moist buccal mucosa. Head is atraumatic, normocephalic. No nasal drainage. ABDOMEN: Soft. Nondistended. Right upper quadrant tenderness with palpation NEUROLOGIC: Alert and oriented. Cranial nerves II through XII grossly intact. LABORATORY DATA: WBC 8.8 Hgb 16 platelets 237 Sodium 140 potassium 3.9 creatinine 0.99 Lactic acid 2.4 down to 1.0 LFTs and lipase normal Urinalysis negative for infection EKG normal sinus rhythm IMAGING: Gallbladder ultrasound mild gallbladder wall thickening, borderline hydropic change, underlying cholelithiasis and positive Goldberg sign. Correlate for early acute cholecystitis. No biliary ductal dilatation. ASSESSMENT: 1. Acute cholecystitis PLAN: -Patient scheduled for laparoscopic cholecystectomy today with Dr. Chavez -Keep patient n.p.o. -Continue antibiotics -Continue IV fluids -Continue supportive care Physician Welfare Investigator note has been reviewed by physician. Signing provider agrees with the documented findings, assessment, and plan of care. Past Medical History Past Medical History: Asthma Additional Past Medical History / Comment(s): Blood clots. , grew out of childhood asthma History of Any Multi-Drug Resistant Organisms: None Reported Past Surgical History: Orthopedic Surgery Additional Past Surgical History / Comment(s): femur surgery right then blood clot after surgery Past Anesthesia/Blood Transfusion Reactions: No Reported Reaction Additional Past Anesthesia/Blood Transfusion Reaction / Comment(s): no blood transfusion Past Psychological History: No Psychological Hx Reported Smoking Status: Current every day smoker, Vaper Past Alcohol Use History: None Reported Past Drug Use History: None Reported Medications and Allergies Home Medications Medication Instructions Recorded Confirmed Type Doxycycline Monohydrate 100 mg PO BID 03/21/23 03/21/23 History Allergies Allergy/AdvReac Type Severity Reaction Status Date / Time No Known Allergies Allergy Verified 03/21/23 23:13 Surgical - Exam Vital Signs Temp Pulse Resp BP Pulse Ox 98.2 F 85 28 H 122/54 99 03/21/23 19:51 03/21/23 19:51 03/21/23 19:51 03/21/23 19:51 03/21/23 19:51 Results - Labs 03/21/23 20:07 03/21/23 20:07 Abnormal Lab Results - Last 24 Hours (Table) 03/21/23 03/21/23 03/22/23 Range/Units 20:07 20:07 00:15 Glucose 109 H (74-99) mg/dL Plasma Lactic Acid Dexter 2.4 H* (0.7-2.0) mmol/L Urine Protein 1+ H (Negative) Urine Ketones 1+ H (Negative) Calcium Oxalate Crystal Occasional H (None) /hpf Urine Mucus Many H (None) /hpf Diabetes panel 03/21/23 Range/Units 20:07 Sodium 140 (137-145) mmol/L Potassium 3.9 (3.5-5.1) mmol/L Chloride 106 (98-107) mmol/L Carbon Dioxide 23 (22-30) mmol/L BUN 11 (9-20) mg/dL Creatinine 0.99 (0.66-1.25) mg/dL Glucose 109 H (74-99) mg/dL Calcium 9.0 (8.4-10.2) mg/dL AST 48 (17-59) U/L ALT 41 (4-49) U/L Alkaline Phosphatase 67 (38-126) U/L Total Protein 6.7 (6.3-8.2) g/dL Albumin 4.3 (3.5-5.0) g/dL Calcium panel 03/21/23 Range/Units 20:07 Calcium 9.0 (8.4-10.2) mg/dL Albumin 4.3 (3.5-5.0) g/dL Pituitary panel 03/21/23 Range/Units 20:07 Sodium 140 (137-145) mmol/L Potassium 3.9 (3.5-5.1) mmol/L Chloride 106 (98-107) mmol/L Carbon Dioxide 23 (22-30) mmol/L BUN 11 (9-20) mg/dL Creatinine 0.99 (0.66-1.25) mg/dL Glucose 109 H (74-99) mg/dL Calcium 9.0 (8.4-10.2) mg/dL Adrenal panel 03/21/23 Range/Units 20:07 Sodium 140 (137-145) mmol/L Potassium 3.9 (3.5-5.1) mmol/L Chloride 106 (98-107) mmol/L Carbon Dioxide 23 (22-30) mmol/L BUN 11 (9-20) mg/dL Creatinine 0.99 (0.66-1.25) mg/dL Glucose 109 H (74-99) mg/dL Calcium 9.0 (8.4-10.2) mg/dL Total Bilirubin 1.1 (0.2-1.3) mg/dL AST 48 (17-59) U/L ALT 41 (4-49) U/L Alkaline Phosphatase 67 (38-126) U/L Total Protein 6.7 (6.3-8.2) g/dL Albumin 4.3 (3.5-5.0) g/dL
--- NOTE | 2023-03-22 12:56 | P.CONS ---
History of Present Illness - Reason for Consult Consult date: 03/22/23 Medical management - Chief Complaint Abdominal pain - History of Present Illness * 47-year-old gentleman with past medical history significant for asthma in childhood, not on any regimen, presents to the emergency department with complaints of abdominal pain. Patient states her symptoms started on 03/21 around 5 when he had right upper sided abdominal discomfort associated with nausea and vomiting. Patient said he had postprandial vomiting and after eating his abdominal pain intensified.. Patient denied associated fever, chills, hematemesis or blood in stool * Workup initiated ER included CBC which showed normal WBC hemoglobin and platelet count * Serum chemistry obtained showed normal sodium, potassium, BUN/creatinine lactate of 2.4 was noted fluid resuscitation given follow-up lactate within normal limits * Liver profile obtained showed ALT of 41 AST of 48 bilirubin 1.1 * Patient had ultrasound right upper quadrant showed gallbladder wall thickening, borderline hydropic change cholelithiasis noted positive Goldberg sign * Patient admitted under general surgery service, medicine consulted for comanagement REVIEW OF SYSTEMS: Nausea, vomiting, abdominal pain CONSTITUTIONAL: No fever, no malaise, no fatigue. HEENT: No recent visual problems or hearing problems. Denied any sore throat. CARDIOVASCULAR: No chest pain, orthopnea, PND, no palpitations, no syncope. PULMONARY: No shortness of breath, no cough, no hemoptysis. GASTROINTESTINAL: Nausea, vomiting, abdominal pain NEUROLOGICAL: No headaches, no weakness, no numbness. HEMATOLOGICAL: Denies any bleeding or petechiae. GENITOURINARY: Denies any burning micturition, frequency, or urgency. MUSCULOSKELETAL/RHEUMATOLOGICAL: Denies any joint pain, swelling, or any muscle pain. ENDOCRINE: Denies any polyuria or polydipsia. PHYSICAL EXAMINATION: GENERAL: The patient is alert and oriented x3, not in any acute distress. Well developed, well nourished. HEENT: Pupils are round and equally reacting to light. EOMI. CARDIOVASCULAR: S1 and S2 present. No murmurs, rubs, or gallops. PULMONARY: Chest is clear to auscultation, no wheezing or crackles. ABDOMEN: Soft, nontender, nondistended, normoactive bowel sounds. No palpable organomegaly. MUSCULOSKELETAL: Nausea, vomiting, abdominal pain EXTREMITIES: No cyanosis, clubbing, or pedal edema. NEUROLOGICAL: Gross neurological examination did not reveal any focal deficits. Past Medical History Past Medical History: Asthma Additional Past Medical History / Comment(s): Blood clots. , grew out of childhood asthma History of Any Multi-Drug Resistant Organisms: None Reported Past Surgical History: Orthopedic Surgery Additional Past Surgical History / Comment(s): femur surgery right then blood clot after surgery Past Anesthesia/Blood Transfusion Reactions: No Reported Reaction Additional Past Anesthesia/Blood Transfusion Reaction / Comm: no blood transfusion Past Psychological History: No Psychological Hx Reported Smoking Status: Current every day smoker, Vaper Past Alcohol Use History: None Reported Past Drug Use History: None Reported Medications and Allergies Home Medications Medication Instructions Recorded Confirmed Type Doxycycline Monohydrate 100 mg PO BID 03/21/23 03/21/23 History Allergies Allergy/AdvReac Type Severity Reaction Status Date / Time No Known Allergies Allergy Verified 03/21/23 23:13 Physical Exam Vitals: Vital Signs Temp Pulse Resp BP Pulse Ox 03/22/23 07:38 98.6 F 76 18 125/85 95 03/22/23 06:00 101 H 17 121/75 98 03/22/23 03:42 89 18 96 03/22/23 02:08 73 17 118/83 94 L 03/22/23 00:22 89 18 117/89 95 03/21/23 23:35 96 18 132/91 95 03/21/23 21:00 76 24 134/83 99 03/21/23 19:51 98.2 F 85 28 H 122/54 99 Intake and Output 03/21/23 03/22/23 03/22/23 22:59 06:59 14:59 Other: Weight 99.79 kg Results CBC & Chem 7: 03/21/23 20:07 03/21/23 20:07 Labs: Abnormal Lab Results - Last 24 Hours (Table) 03/21/23 03/21/23 03/22/23 Range/Units 20:07 20:07 00:15 Glucose 109 H (74-99) mg/dL Plasma Lactic Acid Dexter 2.4 H* (0.7-2.0) mmol/L Urine Protein 1+ H (Negative) Urine Ketones 1+ H (Negative) Calcium Oxalate Crystal Occasional H (None) /hpf Urine Mucus Many H (None) /hpf Assessment and Plan Assessment: Assessment and plan * Acute cholecystitis * Lactic acidosis secondary to dehydration * In regards to acute cholecystitis, general surgery following/primary. Will defer cholecystectomy surgery team * Continue patient on IV Zosyn * Continue fluid resuscitation follow-up on CBC and liver profile * As needed Zofran for nausea, continue pain control * CODE STATUS is full code Time with Patient: Greater than 30
[2023-03-22] MEDS: IV FLUID CONTINUATION 1,000 ML IV ONE (13:23)
[2023-03-22] MEDS ORDERED: NEOSTIGMINE 1 MG/ML 10 ML VIAL ONE (14:37)
[2023-03-22] MEDS ORDERED: GLYCOPYRROLATE 0.2 MG/ML 2 ML VIAL ONE (14:37)
[2023-03-22] MEDS ORDERED: ROCURONIUM 10 MG/ML (5 ML VIAL) IV ONE (14:37)
[2023-03-22] MEDS ORDERED: fentaNYL (PF) 50 MCG/ML 2 ML AMP ONE (14:37)
[2023-03-22] MEDS ORDERED: SUCCINYLCHOLINE CHLORIDE 200 MG/10 ML VIAL IV ONE (14:37)
[2023-03-22] MEDS ORDERED: PROPOFOL 10 MG/ML 20 ML VIAL IV ONE (14:37)
[2023-03-22] MEDS ORDERED: LIDOCAINE 1% INJ 10MG/ML (20 ML MDV) ONE (14:37)
[2023-03-22] MEDS: LIDOCAINE 1%-EPI 1:100,000 50 ML VIAL SQ ONE (15:02)
[2023-03-22] MEDS ORDERED: ONDANSETRON 4 MG/2 ML VIAL IVP PRN (15:45)
[2023-03-22] MEDS ORDERED: HYDROmorphone 1 MG/ML 1 ML SYRINGE IVP PRN (15:45)
--- NOTE | 2023-03-22 15:45 | P.OP ---
Date of Procedure: 03/22/23 Preoperative Diagnosis: Acute cholecystitis Postoperative Diagnosis: Acute cholecystitis Procedure(s) Performed: Laparoscopic cholecystectomy Anesthesia: MALI Surgeon: Russell Chavez Estimated Blood Loss (ml): 20 Pathology: other (Gallbladder) Condition: stable Disposition: PACU Description of Procedure: The patient was placed on the operating table. The patient received a general endotracheal tube anesthesia. The patients abdomen was prepped and draped in the usual sterile fashion. Through an infraumbilical stab incision, the fascia of the anterior abdominal wall was grasped with a pair of Kochers and then the Veress needle was placed in the peritoneal cavity. Position of the Veress needle was confirmed with positive drop test. The abdomen was then insufflated. After adequate insufflation, the 10 mm trocar was placed in the peritoneal cavity. Following this the laparoscope was placed in the peritoneal cavity. The patient was placed in the head-up, right side up position and then a 5 mm trocar was placed in the right lateral and right subcostal po sition under direct visualization. A 8 mm trocar was placed in the epigastric position. The gallbladder was grasped in the fundus and infundibulum. Traction on the gallbladder was placed in the lateral and the cephalad positions. The triangle of Calot was visualized.. The cystic duct was bluntly dissected until the union of the cystic duct and common bile duct was seen. A critical view of safety was achieved. The cystic duct was then divided and sealed with the Harmonic scissors. A PDS Endoloop was then placed throughout the cystic duct stump. The cystic artery divided and sealed with the Harmonic scissors. The gallbladder was then removed from the liver bed using Harmonic scissors. The gallbladder was then extracted through the epigastric port site. Operative field was checked for any bleeding spots and Harmonic scissors was used to coagulate the liver bed. The abdomen was irrigated. The trocars were removed. The skin was closed using interrupted 3-0 Vicryl suture. Dermabond dressing were applied. The patient tolerated the procedure well.
[2023-03-22] MEDS: HYDROmorphone 0.5 MG/0.5 ML SYRINGE IVP ONE (15:53)
[2023-03-22] MEDS: HYDROmorphone 0.5 MG/0.5 ML SYRINGE IVP PRN (20:24)
[2023-03-23] MEDS: ENOXAPARIN 40 MG/0.4 ML SYRINGE SQ SCH (08:41)
[2023-03-23] MEDS: HYDROcodone/APAP 5-325MG 1 EACH TAB PO PRN (09:39)
[2023-03-23 10:21] LABS: HCT 44.5 % (39.6-50.0); HGB 14.2 g/dL (13.0-17.0); MCH 32.3 pg (27.0-32.0); MCHC 31.9 g/dL (32.0-37.0); MCV 101.1 FL (80.0-97.0); Mean Platelet Volume 10.4 FL (9.5-12.2); NRBC Per 100 WBC 0 X 10*3/uL (0.00-0.01); Platelet Count 187 X 10*3/uL (140-440); RDW 13.9 % (11.5-14.5); WBC 8.33 X 10*3/uL (4.50-10.00)
[2023-03-23 10:39] LABS: BUN/Creat Ratio 8.75 Ratio (12.00-20.00); Blood Urea Nitrogen 10.5 mg/dL (9.0-27.0); Calcium 8.3 mg/dL (8.7-10.3); Carbon Dioxide 28.4 mmol/L (21.6-31.8); Chloride 103 mmol/L (96-109); Glucose 87 mg/dL (70-110); Potassium 4.3 mmol/L (3.5-5.5); Sodium 139 mmol/L (135-145)
--- NOTE | 2023-03-23 11:30 | P.PN ---
Subjective Progress Note Date: 03/23/23 * 47-year-old gentleman with past medical history significant for asthma in childhood, not on any regimen, presents to the emergency department with complaints of abdominal pain. Patient states her symptoms started on 03/21 around 5 when he had right upper sided abdominal discomfort associated with nausea and vomiting. Patient said he had postprandial vomiting and after eating his abdominal pain intensified.. Patient denied associated fever, chills, hematemesis or blood in stool * Workup initiated ER included CBC which showed normal WBC hemoglobin and platelet count * Serum chemistry obtained showed normal sodium, potassium, BUN/creatinine lactate of 2.4 was noted fluid resuscitation given follow-up lactate within normal limits * Liver profile obtained showed ALT of 41 AST of 48 bilirubin 1.1 * Patient had ultrasound right upper quadrant showed gallbladder wall thickening, borderline hydropic change cholelithiasis noted positive Goldberg sign * Patient admitted under general surgery service, medicine consulted for comanagement * 03/23/2023: Patient seen and evaluated bedside, patient states abdominal pain has improved, nausea/vomiting abdominal pain has resolved, tolerating diet. IV antibiotics discontinued REVIEW OF SYSTEMS: Nausea, vomiting, abdominal pain resolved CONSTITUTIONAL: No fever, no malaise, no fatigue. HEENT: No recent visual problems or hearing problems. Denied any sore throat. CARDIOVASCULAR: No chest pain, orthopnea, PND, no palpitations, no syncope. PULMONARY: No shortness of breath, no cough, no hemoptysis. GASTROINTESTINAL: Nausea, vomiting, abdominal pain resolved NEUROLOGICAL: No headaches, no weakness, no numbness. HEMATOLOGICAL: Denies any bleeding or petechiae. GENITOURINARY: Denies any burning micturition, frequency, or urgency. MUSCULOSKELETAL/RHEUMATOLOGICAL: Denies any joint pain, swelling, or any muscle pain. ENDOCRINE: Denies any polyuria or polydipsia. PHYSICAL EXAMINATION: GENERAL: The patient is alert and oriented x3, not in any acute distress. Well developed, well nourished. HEENT: Pupils are round and equally reacting to light. EOMI. CARDIOVASCULAR: S1 and S2 present. No murmurs, rubs, or gallops. PULMONARY: Chest is clear to auscultation, no wheezing or crackles. ABDOMEN: Soft, nontender, nondistended, s/p cholecystectomy incision intact EXTREMITIES: No cyanosis, clubbing, or pedal edema. NEUROLOGICAL: Gross neurological examination did not reveal any focal deficits. Objective - Vital Signs Vital signs: Vital Signs Temp 98.6 F 03/23/23 06:55 Pulse 91 03/23/23 06:55 Resp 17 03/23/23 06:55 BP 114/73 03/23/23 06:55 Pulse Ox 96 03/23/23 06:55 FiO2 Intake & Output 03/22/23 03/23/23 03/23/23 18:59 06:59 18:59 Intake Total 1450 Output Total 25 Balance 1425 Weight 99.79 kg Intake: IV 1450 Output: Estimated Blood Loss 25 Other: Voiding Method Toilet - Labs CBC & Chem 7: 03/23/23 06:22 03/23/23 06:22 Labs: Abnormal Lab Results - Last 24 Hours (Table) 03/23/23 03/23/23 Range/Units 06:22 06:22 MCV 101.1 H (80.0-97.0) FL MCH 32.3 H (27.0-32.0) pg MCHC 31.9 L (32.0-37.0) g/dL BUN/Creatinine Ratio 8.75 L (12.00-20.00) Ratio Calcium 8.3 L (8.7-10.3) mg/dL Microbiology - Last 24 Hours (Table) 03/21/23 23:10 Blood Culture - Preliminary Blood 03/21/23 23:05 Blood Culture - Preliminary Blood Assessment and Plan Assessment: Assessment and plan * Acute cholecystitis s/p cholecystectomy * Lactic acidosis secondary to dehydration resolved * In regards to acute cholecystitis, patient is s/p cholecystectomy postoperative day 1, was on IV Zosyn prophylactically which has been discontinued * Appropriately resuscitated with fluid, CBC showed WBC within normal limits * As needed Zofran for nausea, continue pain control * CODE STATUS is full code
--- NOTE | 2023-03-23 13:27 | P.DS ---
Providers Date of admission: 03/21/23 22:19 Expected date of discharge: 03/23/23 Attending physician: Russell Chavez Consults: 03/21/23 22:17 Consult Physician Urgent Consulting Provider: Julien Mosqueda Consult Reason/Comments: Cholecystitis Do you want consulting provider notified?: Yes Primary care physician: Melanie Moon Hospital Course: Discharge diagnosis 1. Acute cholecystitis status post laparoscopic cholecystectomy Hospital course This is a 47-year-old male who presented with right upper quadrant abdominal pain. Gallbladder ultrasound had shown gallbladder wall thickening, hydropic gallbladder gallstones and positive Goldberg sign. Patient is status post laparoscopic cholecystectomy. Patient tolerated surgery well. Pain is controlled. He is tolerating diet. He is afebrile. He has been up and ambulating. He is having flatus. Denies any difficulty urinating. He is stable for discharge. Please refer to chart for any further details. Physician Nuclear Logging Engineer note has been reviewed by physician. Signing provider agrees with the documented findings, assessment, and plan of care. Patient Condition at Discharge: Stable Plan - Discharge Summary Discharge Rx Participant: Yes New Discharge Prescriptions: New HYDROcodone/APAP 5-325MG [[place] 5-325] 1 tab PO Q6HR PRN 3 Days #12 tab PRN Reason: Pain Docusate [Colace] 100 mg PO BID #30 capsule Continue Doxycycline Monohydrate 100 mg PO BID Discharge Medication List Doxycycline Monohydrate 100 mg PO BID 03/21/23 [History] Docusate [Colace] 100 mg PO BID #30 capsule 03/23/23 [Rx] HYDROcodone/APAP 5-325MG [[place] 5-325] 1 tab PO Q6HR PRN 3 Days #12 tab 03/23/23 [Rx] Follow up Appointment(s)/Referral(s): Melanie Moon MD [Primary Care Provider] - 1-2 days (Office is not answering at time of discharge. Please call for a follow-up appointment.) Russell Chavez MD [STAFF PHYSICIAN] - 03/29/23 10:45 am Activity/Diet/Wound Care/Special Instructions: No driving while taking [place] No lifting over 10 pounds You may shower. No soaking or tub baths for 2 weeks Very light activity until you are reevaluated at your follow up appointment with your surgeon Discharge Disposition: HOME SELF-CARE
[2023-03-23 14:01] VITALS: BP 130/79; PULSE 107; RESP 16; TEMP 99.4
== END 2023-03-23 14:16 | disposition home or self-care (01) ==
LOC: EC 19:24 → 6NMEDSUR 22:19 → 5NMEDONC 03-22 09:18 → 4SSUR 03-22 17:04
PROVIDERS: ADMIT Surgery; ATTEND Surgery
DX: K80.00 Calculus of gallbladder with acute cholecystitis without obstruction (principal); E86.0 Dehydration; E87.20 Acidosis, unspecified; J45.909 Unspecified asthma, uncomplicated; F17.290 Nicotine dependence, other tobacco product, uncomplicated
CPT/HCPCS: 96376 ×3; 96366 ×3; 96372; 96375 ×2; 96365; 99285; 36415; 93005; 80053; 80048; 82150; 83605; 83690; 85025; 85027; 81001; 87040; 76705; 47562; G0378 ×4; J2543 ×3; J0330; J2270; J2710; J2405 ×2; J2001; J1650; J3010; J1170 ×3; J1885; J2704; 88304

== ENCOUNTER → 2023-08-04 | Outpatient (CLI) | payer BC ==
--- NOTE | 2023-08-04 13:38 | XR ---
EXAMINATION TYPE: XR cervical spine 5 views comp, XR thoracic spine 3V DATE OF EXAM: 08/04/2023 COMPARISON: None HISTORY: 48-year-old male R20.2 PARESTHESIA OF SKIN M54.9 DORSALGIA FINDINGS: Cervical spine: No predental space widening or prevertebral soft tissue swelling. Straightening of the normal cervica l lordosis. Mild degenerative disc disease and endplate spondylosis C6-C7. Alignment is maintained. M ild facets and uncovertebral joint spurring lower cervical spine. No significant bony neuroforaminal narrowing identified on either side. Normal odontoid view. Thoracic spine: 12 rib-bearing thoracic vertebral bodies. All pedicles are visualized. Vertebral body heights are pre served and alignment is maintained. IMPRESSION: 1. Cervical spine: Straightening of the normal cervical lordosis could be positional or due to muscle spasm. There is mild uncovertebral joint/facet arthropathy in the lower cervical spine and minimal e ndplate spondylosis C6-C7. No prevertebral soft tissue swelling or malalignment. 2. Thoracic spine: No vertebral compression collapse or malalignment.
== END | disposition home or self-care (01) ==
LOC: RADXRMAIN 09:07
PROVIDERS: ATTEND Family Medicine
DX: M47.812 Spondylosis without myelopathy or radiculopathy, cervical region (principal); R20.2 Paresthesia of skin
CPT/HCPCS: 72050; 72070

== ENCOUNTER → 2024-02-20 | Outpatient (CLI) | payer BC ==
--- NOTE | 2024-02-20 15:52 | US ---
EXAMINATION TYPE: US venous doppler duplex LE RT DATE OF EXAM: 02/20/2024 3:45 PM COMPARISON: NONE CLINICAL INDICATION: Male, 48 years old with history of M79.604 PAIN IN RIGHT LEG R20.2 PARESTHESIA O F SKI; Current plantar fascitis., Pain Patient denies any other signs, symptoms, or relevant history TECHNIQUE: The lower extremity deep venous system is examined utilizing real time linear array sonog rc with graded compression, color doppler sonography, and spectral doppler. SIDE PERFORMED: Right FINDINGS: VESSELS IMAGED: Common Femoral Vein Deep Femoral Vein Greater Saphenous Vein * Femoral Vein Popliteal Vein Small Saphenous Vein * Proximal Calf Veins (* superficial vessels) Right Leg: Negative for DVT, Color Doppler imaging shows patency of the vessels. Spectral waveforms are within normal limits. IMPRESSION: 1. Right lower extremity ultrasound negative for deep venous thrombosis. [facility], , 02/20/2024 3:50 PM
--- NOTE | 2024-02-20 21:23 | XR ---
EXAMINATION TYPE: XR lumbosacral spine min 4V DATE OF EXAM: 02/20/2024 4:24 PM COMPARISON: None. CLINICAL INDICATION: Male, 48 years old with history of R20.2 Leg Paresthesia, pain TECHNIQUE: 5 view(s) obtained. FINDINGS: There are 5 lumbar-type vertebral bodies. Pedicles are intact. There is narrowing of the posterior L5 -S1 disc height. Remaining disc heights are preserved. Vertebral body heights are preserved. No spond ylolytic defects evident. IMPRESSION: 1. No acute osseous abnormality lumbar spine. 2. Posterior disc space narrowing L5-S1 [facility], , 02/20/2024 9:21 PM
== END | disposition home or self-care (01) ==
LOC: RADUSWWP 15:28
PROVIDERS: ATTEND Family Medicine
DX: M51.370 Other intervertebral disc degeneration, lumbosacral region with discogenic back pain only (principal); R20.2 Paresthesia of skin; M72.2 Plantar fascial fibromatosis
CPT/HCPCS: 72110